=== PATIENT | female | born 1980 | race Caucasian/White ===

== ENCOUNTER → 2023-05-22 16:25 | Outpatient (REF) | payer OTHER, SELFPAY | LOC: WDC 16:25 | PROVIDERS: ATTENDING PHYSICIAN Obstetrics & Gynecology; FAMILY PHYSICIAN Nurse Practitioner Adult Health | DX: Z12.31 Encounter for screening mammogram for malignant neoplasm of breast (principal) | CPT/HCPCS: 77063; 77067 ==

== ENCOUNTER → 2024-01-08 07:29 | Outpatient (REF) | payer SELFPAY | LOC: RAD 07:29 | PROVIDERS: ATTENDING PHYSICIAN Nurse Practitioner Adult Health | DX: E78.2 Mixed hyperlipidemia (principal) | CPT/HCPCS: 75571 ==

== ENCOUNTER 2024-03-11 06:16 | Day surgery (SDC) | payer OTHER, SELFPAY | END 2024-03-11 13:45 | disposition home or self-care (01) | LOC: GI 06:16 | PROVIDERS: ATTENDING PHYSICIAN Surgery | DX: Z12.11 Encounter for screening for malignant neoplasm of colon (principal); D12.3 Benign neoplasm of transverse colon; C7A.026 Malignant carcinoid tumor of the rectum | CPT/HCPCS: 45385; 45380; 88305; 88341; 88342 ==

== ENCOUNTER → 2024-04-16 11:50 | Outpatient (REF) | payer OTHER, SELFPAY | LOC: PAVMRI 11:50 | PROVIDERS: ATTENDING PHYSICIAN Surgery; FAMILY PHYSICIAN Nurse Practitioner Adult Health | DX: D3A.026 Benign carcinoid tumor of the rectum (principal) | CPT/HCPCS: 72197; A9575 ==

== ENCOUNTER 2024-05-14 06:15 | Day surgery (SDC) | payer OTHER, SELFPAY ==
[2024-05-14 10:27] VITALS: BP 132/98
[2024-05-14 10:48] VITALS: BMI 22.5
[2024-05-14] MEDS: TYLENOL 1000 MG PO (10:48)
[2024-05-14] MEDS: NORMOSOL-R/PLASMALYTE-A 1000 IV (10:49)
[2024-05-14 10:51] VITALS: BMI 22.5
[2024-05-14 15:16] VITALS: BP 121/67
[2024-05-14 15:30] VITALS: BP 116/77
[2024-05-14 15:45] VITALS: BP 115/70
[2024-05-14 16:00] VITALS: BP 127/84
[2024-05-14 16:15] VITALS: BP 122/88
== END 2024-05-14 16:35 | disposition home or self-care (01) ==
LOC: SDS 06:15
PROVIDERS: ATTENDING PHYSICIAN Surgery
DX: D3A.026 Benign carcinoid tumor of the rectum (principal)
CPT/HCPCS: 45990; J1335

== ENCOUNTER → 2024-05-22 07:42 | Outpatient (REF) | payer OTHER, SELFPAY | LOC: WDC 07:42 | PROVIDERS: ATTENDING PHYSICIAN Obstetrics & Gynecology; FAMILY PHYSICIAN Nurse Practitioner Adult Health | DX: Z12.31 Encounter for screening mammogram for malignant neoplasm of breast (principal) | CPT/HCPCS: 77063; 77067 ==

== ENCOUNTER 2024-11-25 06:18 | Day surgery (SDC) | payer OTHER, SELFPAY | END 2024-11-25 08:30 | disposition home or self-care (01) | LOC: GI 06:18 | PROVIDERS: ATTENDING PHYSICIAN Surgery; FAMILY PHYSICIAN Nurse Practitioner Adult Health | DX: D64.9 Anemia, unspecified (principal); Z86.0100 Personal history of colon polyps, unspecified | CPT/HCPCS: 45330 ==